=== PATIENT | male | born 1980 ===

== ENCOUNTER 2017-02-14 13:33 | Emergency (ER) | payer SELFPAY ==
[~2017-02-14] VITALS: Ht 152.4 cm; Wt 70.8 kg
[2017-02-14] MEDS ORDERED: NAPROXEN EC500 MG PO (13:43)
[2017-02-14] MEDS ORDERED: CYCLOBENZAPR5 MG PO (13:44)
[2017-02-14] MEDS ORDERED: GABAPENTIN300 M2 (13:44)
[2017-02-14] MEDS ORDERED: MOTRIN400 MG PO (15:44)
[2017-02-14] MEDS ORDERED: CYCLOBENZAPRINE5 MG PO (15:44)
[2017-02-14 15:46] VITALS: BP 130/88
== END 2017-02-14 15:45 | disposition home or self-care (01) | DRG 563 ==
LOC: ED 13:33
DX: S39.012A Strain of muscle, fascia and tendon of lower back, initial encounter (principal); F17.210 Nicotine dependence, cigarettes, uncomplicated; X58.XXXA Exposure to other specified factors, initial encounter